=== PATIENT | female | born 1985 | race African-American/Black ===

== ENCOUNTER → 2021-03-12 | Outpatient (CLI) | payer OTHER ==
[~2021-03-12] MED LIST: ACYCLOVIR 800800 MG PO; ALBUTEROL INHAL17 GM IH; BIOTIN1000 MCG PO; BUTALB-APAP-CA1 EACH; BUTALB-APAP-CA1 EACH PO; BUTRANS1 EAC1 TRANSDERM; CALCIUM 600 +1 EAC1 PO; CHERATUSSIN DA480 ML PO; CLODERM TP; CYMBALTA30 MG PO; EXCEDRIN CAPLE1 EACH PO; FLEXERIL PO; GAS-X125 M1 PO; HYDROCODONE-AP1 EAC6 PO; IMITREX100 MG PO; INDERAL LA120 M1 PO; LIDODERM1 EACH; MAXALT10 MG PO; MIRALAX17 GM PO; MOBIC15 MG PO; MULTIVITAMINS1 EAC7 PO; NAPROSYN500 MG PO; NOHOMEMEDICATIONS; PROTONIX40 M1 PO; RIZATRIPTAN10 MG PO; TOPAMAX 100 MG100 MG PO; TRAMADOL 50 MG50 MG PO; VALACYCLOVIR500 MG PO; VOLTAREN GEL 1100 G1; ZANTAC 150MG T150 MG PO; ZOFRAN ODT4 MG DISSOLVE; ZPAK PO
== END ==
LOC: M.PC 09:20
PROVIDERS: ATTEND Physical Medicine & Rehabilitation
DX: M47.27 Other spondylosis with radiculopathy, lumbosacral region (principal); M51.16 Intervertebral disc disorders with radiculopathy, lumbar region; E78.5 Hyperlipidemia, unspecified; G43.909 Migraine, unspecified, not intractable, without status migrainosus; M06.9 Rheumatoid arthritis, unspecified; Z98.890 Other specified postprocedural states

== ENCOUNTER → 2021-04-07 | Outpatient (CLI) | payer OTHER | END | disposition home or self-care (01) | LOC: M.PC 09:50 | PROVIDERS: ATTEND Physical Medicine & Rehabilitation | DX: M51.16 Intervertebral disc disorders with radiculopathy, lumbar region (principal); M47.26 Other spondylosis with radiculopathy, lumbar region; M79.605 Pain in left leg; E78.5 Hyperlipidemia, unspecified; G43.909 Migraine, unspecified, not intractable, without status migrainosus; M06.9 Rheumatoid arthritis, unspecified; Z98.890 Other specified postprocedural states; Z79.899 Other long term (current) drug therapy ==